=== PATIENT | male | born 1965 | race Caucasian/White ===

== ENCOUNTER 2020-06-17 21:33 | Inpatient (IN) | payer BC, OTHER ==
[2020-06-17] MEDS ORDERED: Lidocaine 1% 20 ML MDV ONE (21:50)
[2020-06-17] MEDS ORDERED: Sodium Chloride 0.9% 1,000 ML ONE ×2 (22:27→23:16)
[2020-06-17] MEDS ORDERED: Cefepime 2 GM VIAL ONE (22:27)
[2020-06-17] MEDS ORDERED: Ondansetron PF 4 MG/2 ML Vial ONE (22:27)
[2020-06-17] MEDS ORDERED: Sodium Chloride 0.9% 100 ML ONE (22:27)
[2020-06-17] MEDS ORDERED: Sodium Chloride 0.9% 500 ML ONE (22:27)
[2020-06-17 22:32] LABS: #Basophils 0.1 thou/uL (0.0-0.2); #Eosinphils 0.2 thou/uL (0.0-0.7); #Lymphocytes 1.9 thou/uL (1.20-3.40); #Monocytes 1.3 thou/uL (0.11-0.59); #Neutrophils 6.5 thou/uL (1.40-6.50); %Basophils 1.3 % (0.0-1.0); %Eosinophils 2.4 % (0.0-10.0); %Monocytes 13.3 % (0.0-10.0); %Neutrophils 64.1 % (42.0-75.0); Hemoglobin 15.1 g/dL (14.0-18.0); Mean Corpuscular HGB CONC 32.8 g/dL (32.0-36.0); Mean Corpuscular Hemoglobin 30.2 pg (27.0-31.0); Mean Platelet Volume 7.8 fL (7.4-10.4); Platelet Count 251 thou/uL (130-400); White Blood Cell (WBC) Count 10.1 thou/uL (4.8-10.8)
[2020-06-17 22:50] LABS: ALT (SGPT) 41 U/L (8-55); AST (SGOT) 31 U/L (5-34); Albumin 4.3 g/dL (3.5-5.0); Alkaline Phosphatase 67 U/L (40-110); Anion Gap 15 mmol/L (10-20); BUN (Urea Nitrogen) 15 mg/dL (8.4-25.7); Bilirubin, Total 0.9 mg/dL (0.2-1.2); CK (CPK) 507 U/L (30-200); Calc. Creatinine Clearance 0 mL/min (70-130); Calcium 9.4 mg/dL (7.8-10.44); Carbon Dioxide 24 mmol/L (22-29); Chloride 105 mmol/L (98-107); Estimated GFR-MDRD 53; Globulin 3.4 g/dL (2.4-3.5); Glucose 120 mg/dL (70-105); Potassium 3.9 mmol/L (3.5-5.1); Protein, Total 7.7 g/dL (6.0-8.3); Sodium 140 mmol/L (136-145)
[2020-06-17] MEDS ORDERED: Acetaminophen 500 MG TAB ONE (23:16)
[2020-06-17] MEDS ORDERED: Adacel (T-DAP) 0.5 ML SYRINGE ONE (23:49)
[2020-06-17 23:58] LABS: Bilirubin Negative (Negative); Blood, Urine Negative (Negative); Clarity Clear (Clear); Glucose, Urine (Dipstick) Negative (Negative); Ketone, Urine Negative (Negative); Leukocyte Negative (Negative); Nitrite Negative (Negative); Protein, Urine (Dipstick) Negative (Neg-Trace); Specific Gravity, Urine 1.015 (1.005-1.030); pH, Urine 7.5 (5.0-9.0)
[2020-06-18 00:40] VITALS: BMI 30.6
[2020-06-18] MEDS ORDERED: Ondansetron PF 4 MG/2 ML Vial SLOW IVP PRN (01:52)
[2020-06-18] MEDS ORDERED: Ondansetron ODT 4 MG TAB PO PRN (01:52)
[2020-06-18] MEDS ORDERED: Ketorolac Tromethamine 30 MG/ML VIAL IVP PRN (01:54)
[2020-06-18] MEDS ORDERED: Sodium Chloride 0.9% 1,000 ML IV SCH (02:30)
[2020-06-18] MEDS ORDERED: diphenhydrAMINE 25 MG CAP PO SCH (02:30)
[2020-06-18] MEDS: Sodium Chloride 0.9% 1,000 ML ONE ×2 (03:36→03:37)
[2020-06-18] MEDS: Cefepime 2 GM in Sodium Chloride 0.9% 100 ML IVPB SCH ×2 (08:14→21:15)
[2020-06-18] MEDS: Aspirin 81 mg Enteric Coated Tablet PO SCH (08:18)
[2020-06-18] MEDS: Lisinopril 20 MG TAB PO SCH (08:19)
[2020-06-18] MEDS: Hydrochlorothiazide 25 MG TAB PO SCH (08:19)
[2020-06-18] MEDS: Vancomycin HCl 1 GM in Sodium Chloride 0.9% 250 ML 250 ML IVPB SCH ×2 (08:50→21:29)
[2020-06-18] MEDS ORDERED: Sulfameth/Trimethoprim DS 800-160mg TAB PO SCH (09:00)
--- NOTE | 2020-06-18 11:07 | HP ---
CHIEF COMPLAINT: Redness over the right thigh. HISTORY OF PRESENT ILLNESS: The patient is a 54-year-old white male, who has a history of hypertension. The patient said he thought he had something bite him on his right thigh and he developed a small area of redness that was raised. He went to Clinic in [place] on Monday on 06/15/2020 and was placed on Bactrim DS to take twice a day. The patient said that the little bump got bigger and it began draining yesterday while at work. He said the leg got more sore and the small area of swelling had gotten bigger and there was redness that extended over the anterior aspect of the right thigh. He was not running fever, but the leg was more sore. He went to the emergency room and there was evaluated by the emergency room physician. He was found to have a cellulitis of the right leg. There was raised area that has been draining. The ER doctor did not find any fluctuance and he examined that area with an ultrasound and found no pocket of fluid that needs to be drained. He was admitted with a diagnosis of recent furuncle, that was spontaneously drained, but now was complicated by a cellulitis that had gotten worse and had been unresponsive to the Bactrim. The patient's lab work that was done in the emergency room showed H and H of 15.1 and 46.0 with a white blood cell count of 10,000 with 64% segs, 19 % lymphocytes, 13% monocytes, 2% eosinophils, platelet count of 251,000. Sodium was 140, potassium 3.9, BUN 15, creatinine 1.4, GFR 53, glucose 120 nonfasting, creatine kinase was 507. His urine shows specific gravity of 1.015, leukocytes negative, urine blood negative, nitrite negative. The patient had cultures taken from the wound, was started on IV antibiotics with cefepime and vancomycin. The patient was seen early on the morning of 06/18. He said he felt a lot better. He said the redness has gone way down in the leg. He has had no fever. He said the area looks about the same. It continues to drain just a little serosanguineous fluid. In the emergency room last night, he received a tetanus shot. PAST MEDICAL AND SURGICAL HISTORY: Hypertension. The patient said he has had an arthroscopic surgery on his right knee for cartilage injury years ago. He has had a previous hospitalization years ago for MRSA infection in his leg that required incision and drainage. He has had a cholecystectomy. Colonoscopy done in 2018 normal. PRESENT MEDICINES: 1. Bactrim DS one b.i.d., started on 06/15/2020. 2. Lisinopril 20 mg daily. 3. Hydrochlorothiazide 12.5 mg daily. 4. Aspirin 81 mg daily. 5. Benadryl 50 mg at bedtime. ALLERGIES: OPIATES CAUSES ITCHING. REVIEW OF SYSTEMS: GENERAL: The patient has had no fever. He has had no change in his weight. PULMONARY: No complaint. CARDIOVASCULAR: No chest pain. GI: No nausea, vomiting, or change in bowel habits. : No complaint. ADL: The patient is independent of all his ADLs. SKIN: The patient said he just had redness over the anterior thigh, but no rash. NEUROPSYCHIATRIC: No complaint. HEAD AND NECK: No complaint. HABITS: Alcohol, none. Tobacco, none. SOCIAL HISTORY: The patient works for [employer]. He is . CODE STATUS: Full. PHYSICAL EXAMINATION: GENERAL: A pleasant 54-year-old white male, who is alert, appears in no acute distress. VITAL SIGNS: His temperature is 98.2, pulse 89, respirations 20, O2 saturation 94% on room air, blood pressure 128/79. Weight 213. HEENT: Head, normocephalic with male pattern baldness. Head is atraumatic. Ears; TMs are clear. Eyes; pupils are equal, round, and reactive. Sclerae nonicteric. Nose normal. Mouth and throat, normal. Neck; carotids are equal and strong. No bruits. Thyroid, not enlarged. LUNGS: Clear. HEART: Regular rate. No murmurs. ABDOMEN: Soft. No organomegaly. No areas of tenderness. EXTREMITIES: Lower extremities; there is no edema. Right leg over the anterior thigh over the mid to proximal portion of the leg, the patient has an area that is a little raised. It is about 3 to 4 cm. The area has some superficial erosions. There is some scaling of the skin around this. There is no definite fluctuance , but with mild compression, there are several little superficial beads of pus that come up from the little superficial ulcerations in the eroded area. There was some minimal surrounding erythema. Apparently, the erythema had covered his entire thigh area last night, but he said it has markedly diminished and feels a lot better. The area was not tender. NEUROLOGIC: The patient is alert and oriented x3, has no focal weakness. IMPRESSION: 1. Cellulitis of the right anterior thigh. a. Complicated by a central furuncle/carbuncle that has spontaneously drained , still draining. b. Improved since the addition of the IV antibiotics on the evening of 2019. 2. Hypertension. 3. Elevated CK. PLAN: The patient is doing better this morning. The wound was cleaned with and overlying dressing applied. Culture from this area was taken last night, result of this is pending. [employer] pump will be used for application of heat. We will follow this. This may have to be opened more, but did not feel any fluctuance and on ultrasound exam last evening, there was no pocket of fluid. The leg according to the patient is much better. The area of redness has markedly improved. We will continue the IV antibiotics and just follow this wound. Continue his routine medication, may be up ad jennifer. We will do follow up on his CK in the morning and kidney function. Job ID: [id number] [facility]
[2020-06-18] MEDS: Acetaminophen 325 MG TAB PO PRN ×2 (11:37→15:33)
[2020-06-18] MEDS: diphenhydrAMINE 25 MG CAP PO SCH (21:17)
[2020-06-19 06:01] LABS: ALT (SGPT) 37 U/L (8-55); AST (SGOT) 27 U/L (5-34); Albumin 4.1 g/dL (3.5-5.0); Alkaline Phosphatase 57 U/L (40-110); Anion Gap 12 mmol/L (10-20); BUN (Urea Nitrogen) 10 mg/dL (8.4-25.7); Bilirubin, Total 1.5 mg/dL (0.2-1.2); CK (CPK) 215 U/L (30-200); Calc. Creatinine Clearance 111 mL/min (70-130); Calcium 8.9 mg/dL (7.8-10.44); Carbon Dioxide 26 mmol/L (22-29); Cardiac Risk 4.7 (Less than 4.5); Chloride 104 mmol/L (98-107); Cholesterol 121 mg/dl (< 200 Desired); Estimated GFR-MDRD 74; Glucose 100 mg/dL (70-105); HDL Cholesterol 26 mg/dL (>60 Neg Risk); LDL Cholesterol, Calculated 70 mg/dL; Potassium 4.2 mmol/L (3.5-5.1); Sodium 138 mmol/L (136-145); Triglycerides 127 mg/dL (Less than 150)
[2020-06-19] MEDS: Aspirin 81 mg Enteric Coated Tablet PO SCH (08:27)
[2020-06-19] MEDS: Hydrochlorothiazide 25 MG TAB PO SCH (08:27)
[2020-06-19] MEDS: Cefepime 2 GM in Sodium Chloride 0.9% 100 ML IVPB SCH (08:27)
[2020-06-19] MEDS: Lisinopril 20 MG TAB PO SCH (08:27)
[2020-06-19] MEDS: Acetaminophen 325 MG TAB PO PRN ×3 (08:28→20:26)
[2020-06-19 09:22] LABS: Globulin 3.2 g/dL (2.4-3.5); Protein, Total 7.3 g/dL (6.0-8.3)
[2020-06-19 09:30] LABS: %Lymphocytes 17.4 % (21.0-51.0); %Monocytes 11.2 % (0.0-10.0); %Neutrophils 68.7 % (42.0-75.0); Hemoglobin 15.7 g/dL (14.0-18.0); Mean Corpuscular HGB CONC 31.8 g/dL (32.0-36.0); Mean Corpuscular Hemoglobin 29.7 pg (27.0-31.0); Mean Corpuscular Volume 93.6 fL (78.0-98.0); Mean Platelet Volume 7.8 fL (7.4-10.4); Platelet Count 272 thou/uL (130-400); RBC Distribution Width 13.4 % (11.5-14.5); Red Blood Cell (RBC) Count 5.29 mill/uL (4.70-6.10); White Blood Cell (WBC) Count 9.8 thou/uL (4.8-10.8)
[2020-06-19 09:31] LABS: #Basophils 0.2 thou/uL (0.0-0.2); #Eosinphils 0.4 thou/uL (0.0-0.7); #Lymphocytes 1.7 thou/uL (1.20-3.40); #Monocytes 1.1 thou/uL (0.11-0.59); #Neutrophils 6.4 thou/uL (1.40-6.50); %Basophils 1.7 % (0.0-1.0); %Eosinophils 4.1 % (0.0-10.0)
[2020-06-19] MEDS: Vancomycin HCl 1 GM in Sodium Chloride 0.9% 250 ML 250 ML IVPB SCH (09:31)
--- NOTE | 2020-06-19 11:18 | PRG ---
DATE OF SERVICE: 06/19/2020 SUBJECTIVE: The patient says he feels better other than he has been just a little nauseated this morning. He says his leg feels better, but a little sore when he is up walking. He has been up walking. OBJECTIVE: GENERAL: The patient is sitting up in bed, alert, appears comfortable, and in no distress. VITAL SIGNS: His temperature is 98.3, pulse 93, respirations 18, O2 saturation 95% on room air, blood pressure 145/90. LUNGS: Clear. HEART: Regular rate. EXTREMITIES: Right anterior leg at the junction of the proximal and middle third, there is little pinkness to the skin. The central area has ulcerative area that is about 3 cm in diameter. It is flattening out, not as raised as it was yesterday. The bed of the wound has multiple little superficial pitting and little small pustule pockets. There is no fluctuance to the wound and I think this is all superficial. Overall, the wound looks better and flatter. LABORATORY DATA: Today shows an H and H of 15.7 and 49.5, white cell count 9800 with 69% segs, 17% lymphocytes, and platelet count of 272,000. Sodium 138, potassium 4.2, BUN 10, creatinine 1.05, creatine kinase dropped from 507 to 215. Cholesterol 121, LDL 70, HDL 26, triglycerides 127. The urine culture had no growth. Blood cultures have no growth x2. Wound culture is growing Staph aureus, sensitivity pending. ASSESSMENT: 1. Cellulitis of the right anterior thigh with carbuncle formation. a. Unresponsive to outpatient management. b. Improved as of 06/19/2020. c. Wound culture is growing Staph aureus. Blood cultures, no growth as of 06/19. 2. Hypertension, controlled. 3. Mild elevation of CK, has almost normalized and the patient has normal renal function. PLAN: We will stop the cefepime, but continue the vancomycin. We will continue wound care twice a day, cleansing and gently scrubbing the wound with Hibiclens rinsing off and applying overlying gauze. This will help debride these little superficial pitting areas. Up ad jennifer. Job ID: [id number] [facility]
[2020-06-19 13:48] LABS: SARS-CoV-2 MS2 Positive; SARS-CoV-2 N Gene Negative; SARS-CoV-2 S Gene Negative; SARS-CoV-2 by NAA Not Detected (NotDetected); SARS-CoV-2 orf1ab Negative
[2020-06-19] MEDS: Ibuprofen 200 MG TAB PO PRN ×2 (16:17→20:26)
[2020-06-19] MEDS: diphenhydrAMINE 25 MG CAP PO SCH (21:49)
[2020-06-19] MEDS: Vancomycin 1.5 GRAM/300 ML BAG 1.5 GM in Premix Bag 1 BAG IVPB SCH (21:50)
[2020-06-20] MEDS: Aspirin 81 mg Enteric Coated Tablet PO SCH (07:59)
[2020-06-20] MEDS: Lisinopril 20 MG TAB PO SCH (07:59)
[2020-06-20] MEDS: Acetaminophen 325 MG TAB PO PRN ×2 (07:59→21:51)
[2020-06-20] MEDS: Hydrochlorothiazide 25 MG TAB PO SCH (07:59)
[2020-06-20] MEDS: Ibuprofen 200 MG TAB PO PRN ×2 (07:59→21:51)
[2020-06-20] MEDS: Vancomycin 1.5 GRAM/300 ML BAG 1.5 GM in Premix Bag 1 BAG IVPB SCH ×2 (08:00→21:51)
[2020-06-20] MEDS: diphenhydrAMINE 25 MG CAP PO SCH (21:51)
[2020-06-21] MEDS: Vancomycin 1.5 GRAM/300 ML BAG 1.5 GM in Premix Bag 1 BAG IVPB SCH ×2 (08:02→20:27)
[2020-06-21] MEDS: Hydrochlorothiazide 25 MG TAB PO SCH (08:03)
[2020-06-21] MEDS: Aspirin 81 mg Enteric Coated Tablet PO SCH (08:03)
[2020-06-21] MEDS: Lisinopril 20 MG TAB PO SCH (08:03)
--- NOTE | 2020-06-21 10:36 | PRG ---
DATE OF SERVICE: 06/20/2020 SUBJECTIVE: The patient says he feels better today. He has been up walking around. His right leg still is a little sore, but overall feels better. OBJECTIVE: GENERAL: The patient has remained afebrile. VITAL SIGNS: His temperature this morning is 97.9, pulse 83, respirations 16, O2 saturation 94% to 95% on room air, blood pressure 134/84. LUNGS: Clear. HEART: Regular rate. EXTREMITIES: Right leg over the anterior thigh, the wound looks better. There is a little slight pinkness around the wound in the area of the dressing that looks like more just irritation from the taping and dressing. The wound itself looks better. It is very flat. There is no fluctuance. The bed of the wound is smaller and measures about 2 cm in diameter. The wound bed still is red with little tiny pockets of mucopurulent drainage, but overall less. Overall, the wound looks better. His culture of the wound grew a methicillin sensitive Staph aureus that is sensitive to the vancomycin, sensitive to the trimethoprim sulfamethoxazole, also sensitive to the cephalosporins and doxycycline. His COVID-19 PCR was negative, not detected. ASSESSMENT: 1. Cellulitis of the right anterior thigh with the carbuncle formation that has spontaneously drained. a. Unresponsive to outpatient management. b. Wound is smaller as of 06/20. c. Wound culture grew methicillin sensitive Staph aureus. 2. Hypertension, controlled. 3. Mild elevation of CK that was almost back to normal, last checked on 06/19. PLAN: The patient is doing better. We will continue the present wound care, continue the vancomycin. If doing this well, anticipate that he will be discharged tomorrow on oral antibiotics and with local wound care. Job ID: [id number] [facility]
--- NOTE | 2020-06-21 10:44 | PRG ---
DATE OF SERVICE: 06/21/2020 SUBJECTIVE: The patient said the leg is still sore, but overall a little better. OBJECTIVE: GENERAL: The patient is alert, appears in no distress. VITAL SIGNS: Show a temperature of 97.6, pulse 71, respirations 14, O2 saturation 95% on room air, blood pressure 128/85. LUNGS: Clear. HEART: Regular rate. EXTREMITIES: Right anterior thigh looks better. There is no surrounding redness. The wound is slightly smaller. The wound base, about half of this has a mucopurulent adherent material. The rest is red and clean. Overall, the wound looks a little better and it is somewhat smaller. ASSESSMENT: 1. Cellulitis of the right anterior thigh. a. Complicated by a furuncle that spontaneously drained, has been left with an ulceration. b. Cellulitis, resolving. c. Ulcer is a little improved as of 06/21. d. Wound culture growing methicillin sensitive Staph aureus. 2. Hypertension, controlled. PLAN: The patient is doing better. We will continue the IV antibiotics for one more day. Continue the local wound care twice today. Anticipate probable discharge in the morning. Job ID: [id number] [facility]
[2020-06-21] MEDS: Ibuprofen 200 MG TAB PO PRN (21:45)
[2020-06-21] MEDS: Acetaminophen 325 MG TAB PO PRN (21:45)
[2020-06-21] MEDS: diphenhydrAMINE 25 MG CAP PO SCH (21:45)
[2020-06-22 05:18] LABS: Anion Gap 14 mmol/L (10-20); BUN (Urea Nitrogen) 12 mg/dL (8.4-25.7); Calc. Creatinine Clearance 110 mL/min (70-130); Calcium 8.8 mg/dL (7.8-10.44); Carbon Dioxide 27 mmol/L (22-29); Chloride 103 mmol/L (98-107); Estimated GFR-MDRD 73; Glucose 96 mg/dL (70-105); Potassium 3.8 mmol/L (3.5-5.1); Sodium 140 mmol/L (136-145)
[2020-06-22] MEDS: Aspirin 81 mg Enteric Coated Tablet PO SCH (08:50)
[2020-06-22] MEDS: Lisinopril 20 MG TAB PO SCH (08:51)
[2020-06-22] MEDS: Hydrochlorothiazide 25 MG TAB PO SCH (08:51)
[2020-06-22] MEDS: Vancomycin 1.5 GRAM/300 ML BAG 1.5 GM in Premix Bag 1 BAG IVPB SCH (08:52)
[2020-06-22 08:55] VITALS: BP 121/76; TEMP 97.2
--- NOTE | 2020-06-23 09:08 | DIS ---
DATE OF ADMISSION: 06/17/2020 DATE OF DISCHARGE: 06/22/2020 FINAL DIAGNOSES: 1. Cellulitis of the left leg. a. Complicated by furuncle that has spontaneously drained leaving an open wound. b. Cellulitis, resolved. c. Wound slowly healing. d. Culture from the wound grew methicillin sensitive Staph aureus, blood cultures no growth. 2. Hypertension. SUMMARY: Patient is a 54-year-old white male, who has a history of hypertension. The patient had developed a sore on his right leg over the anterior thigh. This had developed in the raised area. He said there was some surrounding redness. He went and saw a doctor who placed him on Bactrim DS twice daily 2 days prior to admission. The patient said the wound on the leg got bigger and started draining a large amount of tissue. The wound went down, but left a sore, but the redness on the leg got much bigger and covered a much larger area and the leg hurt more. He did not think he was running any fever. The patient presented to the emergency room on the evening of 06/17 and was found to have a large area of cellulitis of the anterior thigh. He was afebrile. He had an area central to the area of erythema where apparently the furuncle had been present and ruptured leaving a crusted wound. His initial white cell count was 10,000 with 64% segs, 19% lymphocytes and a hemoglobin of 15.1, platelet count of 251. His sodium was 140, potassium 3.9, creatinine 1.4, GFR 53, glucose 120. His creatine kinase was 503. The patient was admitted to the hospital for cellulitis of the right anterior thigh that had been unresponsive to outpatient management with Bactrim. Also, a history of a furuncle that had ruptured leaving a wound. HOSPITAL COURSE: The patient was admitted to the hospital with a cellulitis of the leg that had been intractable to outpatient management. He had blood cultures drawn. He was placed on IV vancomycin and cefepime. Culture from the wound was taken and the patient was started on IV fluids. Followup lab work on 06/19 showed the creatine kinase had dropped to 215 with normal being less than 200. His renal function had improved to a BUN of 10 and a creatinine 1.05, GFR up to 74, and repeat glucose was 100 on 06/22. His sodium was 140, potassium 3.8, BUN 12, creatinine 1.03, GFR 73, and glucose 96. His TSH was 1.0625. Total cholesterol was 121, triglycerides 127, LDL 70, and HDL 26. The patient's condition improved gradually each day. The redness markedly diminished after his first 24 hours and gradually resolved. He had no fever during his hospital stay. The pain in the leg got less and less. The wound where the furuncle had spontaneously ruptured had flattened , the base of the wound was about 3 cm and had a mucopurulent adherence. Gradually this cleaned up with just local cleansing with Hibiclens and application of dry gauze. By the day of his discharge, there was no surrounding redness. The wound bed was much blind cleaner and there was only a tiny little strip of mucopurulent material that covered less than a fourth of the wound. The rest of it had a good red granulation base. The patient remained afebrile. Lungs clear and blood pressure normal. His blood cultures came back with no growth. His wound culture grew methicillin sensitive Staph aureus that was sensitive to the cephalosporins, Augmentin, sulfamethoxazole and trimethoprim, doxycycline and rifampin. By 06/22/20, his condition improved such that it was felt that he could now be managed as an outpatient. He will take care of the wound with cleansing this twice a day with the Hibiclens and applying the overlying gauze. We will recheck him in a week. He is to remain off work until I see him. DISPOSITION: 1. Diet: Regular diet, no added salt. 2. Activities: Encourage patient to be up walking. No work until patient checked in the office by myself on 06/29 tentatively, patient should be able to return to work with no restrictions on 06/30/20. 3. Wound care: Clean the wound twice a day with Hibiclens and apply dry gauze. MEDICATIONS: 1. Cephalexin 500 mg q.i.d. for 10 days. 2. Lisinopril 20 mg daily. 3. Hydrochlorothiazide 12.5 mg daily. 4. Aspirin 81 mg daily. 5. Acetaminophen 325 mg two every 4 hours as needed. 6. Ibuprofen 200 mg two every 4 hours as needed. 7. Bactroban, apply to any wounds 3 times a day as needed. FOLLOWUP: The patient will be seen in followup in my office in one week on 06/29/20. Anticipate he should be able to return to work with no restrictions on 06/30/20. CODE STATUS: Full code. Job ID: [id number] [facility]
== END 2020-06-22 10:52 | disposition home or self-care (01) | DRG 603 ==
LOC: MADERS 21:33 → MADMS 23:12
PROVIDERS: ADMIT Family Medicine; ATTEND Family Medicine
DX: L03.116 Cellulitis of left lower limb (principal); B95.61 Methicillin susceptible Staphylococcus aureus infection as the cause of diseases classified elsewhere; I10 Essential (primary) hypertension; Z20.828 Contact with and (suspected) exposure to other viral communicable diseases; Z90.49 Acquired absence of other specified parts of digestive tract; Z88.6 Allergy status to analgesic agent
CPT/HCPCS: 36415; 80048; 80053; 80061; 80202; 81003; 82550; 83605; 84443; 85025; 87040; 87070; 87077; 87086; 87186; 87205; 87635; 90471; 90715; 96365; 96367; 96375; J0692; J2001; J2405; J3370; J3490; J7030; J7050; Q0162; Q0163; U0003

== ENCOUNTER 2022-01-31 15:59 | Outpatient (CLI) | payer BC ==
[2022-01-31 16:48] LABS: #Basophils 0.1 thou/uL (0.0-0.2); #Eosinphils 0.3 thou/uL (0.0-0.7); #Lymphocytes 1.4 thou/uL (1.20-3.40); #Monocytes 0.7 thou/uL (0.11-0.59); #Neutrophils 3.3 thou/uL (1.40-6.50); %Basophils 1.6 % (0.0-1.0); %Eosinophils 4.4 % (0.0-10.0); %Lymphocytes 24.2 % (21.0-51.0); %Monocytes 12.5 % (0.0-10.0); %Neutrophils 57.3 % (42.0-75.0); Hemoglobin 15.3 g/dL (14.0-18.0); Mean Corpuscular Hemoglobin 29.3 pg (27.0-31.0); Mean Platelet Volume 7.5 fL (7.4-10.4); Platelet Count 280 thou/uL (130-400); Red Blood Cell (RBC) Count 5.23 mill/uL (4.70-6.10); White Blood Cell (WBC) Count 5.8 thou/uL (4.8-10.8)
[2022-01-31 17:05] LABS: ALT (SGPT) 28 U/L (8-55); AST (SGOT) 23 U/L (5-34); Albumin 4.3 g/dL (3.5-5.0); Alkaline Phosphatase 62 U/L (40-110); Anion Gap 15 mmol/L (10-20); BUN (Urea Nitrogen) 18 mg/dL (8.4-25.7); Bilirubin, Total 0.7 mg/dL (0.2-1.2); Calc. Creatinine Clearance 0 mL/min (70-130); Calcium 9.8 mg/dL (7.8-10.44); Carbon Dioxide 26 mmol/L (22-29); Cardiac Risk 4.1 (Less than 4.5); Chloride 106 mmol/L (98-107); Cholesterol 141 mg/dl (< 200 Desired); Globulin 3.1 g/dL (2.4-3.5); Glucose 109 mg/dL (70-105); HDL Cholesterol 34 mg/dL (>60 Neg Risk); LDL Cholesterol, Calculated 54 mg/dL; Potassium 3.8 mmol/L (3.5-5.1); Protein, Total 7.4 g/dL (6.0-8.3); Sodium 143 mmol/L (136-145); Triglycerides 266 mg/dL (Less than 150)
[2022-01-31 17:24] LABS: Thyroid Stimulating Hormone 0.9516 uIU/mL (0.35-4.94)
[2022-01-31 21:58] LABS: Sex Hormone Binding Globulin 43.1 nmol/L (11-78); Testosterone, Free 64.7 pg/mL (47-244); Testosterone, Total 234.5 ng/dL (221-716)
[2022-01-31 23:34] LABS: Albumin (w/Testosterone Panel) 4.4 g/dL
[2022-02-01 01:42] LABS: PSA-Asymptomatic (SCREENING) 0.22 ng/mL (0-4.0)
== END 2022-01-31 16:00 | disposition home or self-care (01) ==
LOC: MADLAB 15:59
PROVIDERS: ATTEND Family Medicine
DX: M54.50 Low back pain, unspecified (principal); I10 Essential (primary) hypertension; M43.07 Spondylolysis, lumbosacral region; M43.17 Spondylolisthesis, lumbosacral region
CPT/HCPCS: 36415; 72100; 80053; 80061; 84270; 84403; 84443; 85025; G0103

== ENCOUNTER 2022-10-16 11:50 | Emergency (ER) | payer BC ==
[2022-10-16 12:15] LABS: #Basophils 0.1 thou/uL (0.0-0.2); #Eosinphils 0.3 thou/uL (0.0-0.7); #Lymphocytes 1.5 thou/uL (1.20-3.40); #Monocytes 0.7 thou/uL (0.11-0.59); #Neutrophils 3.5 thou/uL (1.40-6.50); %Eosinophils 4.5 % (0.0-10.0); %Monocytes 10.8 % (0.0-10.0); %Neutrophils 58.7 % (42.0-75.0); Hemoglobin 17.1 g/dL (14.0-18.0); Mean Corpuscular HGB CONC 33.5 g/dL (32.0-36.0); Mean Corpuscular Hemoglobin 29.8 pg (27.0-31.0); Mean Corpuscular Volume 88.8 fl (78.0-98.0); Mean Platelet Volume 9.2 fL (7.4-10.4); Platelet Count 221 10x3/uL (130-400); RBC Distribution Width 10.9 % (11.5-14.5); Red Blood Cell (RBC) Count 5.74 mill/uL (4.70-6.10)
[2022-10-16 12:32] LABS: ALT (SGPT) 33 U/L (8-55); AST (SGOT) 21 U/L (5-34); Albumin 4.5 g/dL (3.5-5.0); Alkaline Phosphatase 62 U/L (40-110); Anion Gap 16 mmol/L (10-20); BUN (Urea Nitrogen) 17 mg/dL (8.4-25.7); Bilirubin, Total 1.3 mg/dL (0.2-1.2); Calc. Creatinine Clearance 0 mL/min (70-130); Calcium 9.6 mg/dL (7.8-10.44); Carbon Dioxide 26 mmol/L (22-29); Chloride 102 mmol/L (98-107); Estimated GFR 76; Globulin 3.4 g/dL (2.4-3.5); Glucose 115 mg/dL (70-105); Magnesium 2.2 mg/dL (1.6-2.6); Potassium 3.6 mmol/L (3.5-5.1); Protein, Total 7.9 g/dL (6.0-8.3); Sodium 140 mmol/L (136-145)
[2022-10-16 12:36] LABS: Acetaminophen Less than 10.0 mcg/mL (10.0-30.0); Alcohol Less than 10 mg/dL (Less than 10); Salicylate Less than 8.0 mg/dL (15.0-30.0)
[2022-10-16] MEDS ORDERED: Lidocaine Viscous Sol 2% 15 ml UD Cup ONE (12:47)
[2022-10-16] MEDS ORDERED: Mag-Al Plus 1200 MG/1200 MG/120 MG/30 ML UDCUP ONE (12:47)
[2022-10-16] MEDS ORDERED: ALPRAZolam 0.5 MG TAB ONE (15:11)
[2022-10-16 15:21] LABS: Troponin I Less than 0.010 ng/mL (< 0.028)
== END 2022-10-16 15:45 | disposition home or self-care (01) ==
LOC: MADERS 11:50
DX: R07.89 Other chest pain (principal); I10 Essential (primary) hypertension; Z79.899 Other long term (current) drug therapy
CPT/HCPCS: 71045; 80053; 80307; 83690; 83735; 83880; 84484; 85025; 93005

== ENCOUNTER 2023-06-18 11:36 | Emergency (ER) | payer BC ==
[2023-06-18] MEDS ORDERED: Sodium Chloride 0.9% 1,000 ML ONE ×3 (12:23→15:36)
[2023-06-18] MEDS ORDERED: diphenhydrAMINE 50 MG/ML VIAL ONE (12:23)
[2023-06-18] MEDS ORDERED: Metoclopramide HCl 10 MG/2 ML VIAL ONE (12:23)
[2023-06-18 12:50] LABS: Band 3 % (5-11); Eosinophils 1 % (0-10); Hematocrit 47.5 % (42.0-52.0); Hemoglobin 15.8 g/dL (14.0-18.0); Lymphocytes 2 % (21-51); MDiff Complete? YES; Mean Corpuscular HGB CONC 33.2 g/dL (32.0-36.0); Mean Corpuscular Hemoglobin 30.7 pg (27.0-31.0); Mean Corpuscular Volume 92.4 fl (78.0-98.0); Monocytes 1 % (0-10); Neutrophil 85 % (42-75); Platelet Adequacy Comment Appears Adequate; Platelet Count 206 10x3/uL (130-400); Reactive Lymphocytes 8 % (0-10); Red Blood Cell (RBC) Count 5.14 mill/uL (4.70-6.10); White Blood Cell (WBC) Count 10.2 10x3/uL (4.8-10.8)
[2023-06-18 13:00] LABS: ALT (SGPT) 33 U/L (8-55); AST (SGOT) 27 U/L (5-34); Albumin 4.3 g/dL (3.5-5.0); Alkaline Phosphatase 60 U/L (40-110); Anion Gap 22 mmol/L (10-20); BUN (Urea Nitrogen) 34 mg/dL (8.4-25.7); Bilirubin, Total 1.8 mg/dL (0.2-1.2); Calc. Creatinine Clearance 0 mL/min (70-130); Calcium 9.6 mg/dL (7.8-10.44); Carbon Dioxide 20 mmol/L (22-29); Chloride 96 mmol/L (98-107); Estimated GFR 16; Globulin 3.8 g/dL (2.4-3.5); Glucose 126 mg/dL (70-105); Potassium 3.9 mmol/L (3.5-5.1); Protein, Total 8.1 g/dL (6.0-8.3); Sodium 134 mmol/L (136-145)
[2023-06-18] MEDS ORDERED: Ibuprofen 600 MG TAB ONE (13:19)
[2023-06-18 13:24] LABS: Bilirubin Negative (Negative); Blood, Urine Moderate (Negative); Clarity Cloudy (Clear); Glucose, Urine (Dipstick) Negative (Negative); Ketone, Urine Trace mg/dL (Negative); Leukocyte Negative (Negative); Nitrite Negative (Negative); Protein, Urine (Dipstick) > or equal to 300 mg/dL (Neg-Trace); Urobilinogen 0.2 mg/dL (Less than 2); pH, Urine 5.5 (5.0-9.0)
[2023-06-18 13:36] LABS: CAUTI Indications for Culture Dysuria,urgency,freq; WBC/HPF 0-3 HPF (0-3)
[2023-06-18 13:37] LABS: Bacteria/HPF 1+ HPF (None Seen); Mucous/LPF Few LPF (<2+)
[2023-06-18 13:38] LABS: Urine Culture Reflex No No
[2023-06-18 15:20] LABS: SARS-CoV-2 NAA Rapid Test Not Detected (NotDetected)
[2023-06-18] MEDS ORDERED: methylPREDNISolone Sod Succ/PF 125 MG/2 ML VIAL ONE (15:36)
[2023-06-18] MEDS ORDERED: Acetaminophen 500 MG TAB ONE (15:37)
== END 2023-06-18 19:00 | disposition short-term general hospital (02) ==
LOC: MADERS 11:36
DX: N17.9 Acute kidney failure, unspecified (principal); E86.0 Dehydration; B34.9 Viral infection, unspecified; I10 Essential (primary) hypertension; Z79.899 Other long term (current) drug therapy; Z20.822 Contact with and (suspected) exposure to COVID-19
CPT/HCPCS: 36415; 71045; 80053; 81001; 82550; 83605; 85025; 87040; 87804; 96361; 96374; 96375; J1200; J2765; J2930; J7050; U0002